=== PATIENT | female | born 1945 | race Caucasian/White ===

== ENCOUNTER 2025-04-01 14:41 | Inpatient (IN) | payer MEDICARE, OTHER ==
[2025-04-01] MEDS ORDERED: Acetaminophen 500 MG TAB PO PRN (18:44)
[2025-04-01] MEDS: oxyCODONE 5 MG TAB PO PRN (20:41)
[2025-04-01] MEDS: Senokot S 8.6-50 MG TAB PO SCH (20:43)
[2025-04-01] MEDS: Melatonin 3 MG TAB PO PRN (20:43)
[2025-04-02 04:50] LABS: #Basophils 0.4 thou/uL (0.0-0.2); #Eosinophils 0.3 thou/uL (0.0-0.7); #Lymphocytes 1.9 thou/uL (1.20-3.40); #Monocytes 1.1 thou/uL (0.11-0.59); #Neutrophils 12.1 thou/uL (1.40-6.50); %Basophils 2.6 % (0.0-1.0); %Eosinophils 1.8 % (0.0-10.0); %Lymphocytes 12.2 % (21.0-51.0); %Monocytes 7.0 % (0.0-10.0); %Neutrophils 76.4 % (42.0-75.0); Hematocrit 37.4 % (36.0-47.0); Hemoglobin 13.5 g/dL (12.0-16.0); Mean Corpuscular Hemoglobin 29.9 pg (27.0-31.0); Mean Corpuscular Volume 83.0 fl (78.0-98.0); Platelet Count 272 10x3/uL (130-400); Red Blood Cell (RBC) Count 4.51 mill/uL (4.20-5.40); White Blood Cell (WBC) Count 15.8 10x3/uL (4.8-10.8)
[2025-04-02 05:02] LABS: Anion Gap 16 mmol/L (10-20); BUN (Urea Nitrogen) 14 mg/dL (9.8-20.1); Calc. Creatinine Clearance 70 mL/min (70-130); Calcium 8.9 mg/dL (7.8-10.44); Carbon Dioxide 26 mmol/L (23-31); Chloride 96 mmol/L (98-107); Glucose 98 mg/dL (83-110); Potassium 3.9 mmol/L (3.5-5.1); Sodium 134 mmol/L (136-145)
[2025-04-02 08:03] VITALS: BMI 33.7
[2025-04-02] MEDS: Lisinopril 10 MG TAB PO SCH (09:14)
[2025-04-02] MEDS: Senokot S 8.6-50 MG TAB PO SCH (09:14)
[2025-04-02] MEDS: Aspirin Chewable 81 MG TAB PO SCH (09:14)
[2025-04-02] MEDS: Pantoprazole 40 MG DR.TAB PO SCH (09:18)
[2025-04-02] MEDS: Sertraline 25 MG TAB PO SCH (09:18)
[2025-04-03] MEDS: Acetaminophen 325 MG TAB PO PRN (20:30)
[2025-04-04] MEDS ORDERED: Senokot S 8.6-50 MG TAB PO PRN (09:50)
[2025-04-04] MEDS ORDERED: HYDROcodone/Acetaminophen 5/325 mg Tablet PO PRN (09:50)
[2025-04-05 04:53] LABS: Hematocrit 38.1 % (36.0-47.0); Hemoglobin 13.9 g/dL (12.0-16.0); MDiff Complete? YES; Mean Corpuscular Hemoglobin 29.8 pg (27.0-31.0); Mean Corpuscular Volume 81.7 fl (78.0-98.0); Platelet Adequacy Comment Appears Adequate; Platelet Count 387 10x3/uL (130-400); Red Blood Cell (RBC) Count 4.66 mill/uL (4.20-5.40); White Blood Cell (WBC) Count 21.9 10x3/uL (4.8-10.8)
[2025-04-05 04:58] LABS: ALT (SGPT) 29 U/L (Less than 34); AST (SGOT) 41 U/L (11-34); Albumin 2.8 g/dL (3.1-4.5); Alkaline Phosphatase 400 U/L (40-110); Anion Gap 24 mmol/L (10-20); BUN (Urea Nitrogen) 45 mg/dL (9.8-20.1); Bilirubin, Total 2.4 mg/dL (0.3-1.2); Calc. Creatinine Clearance 17 mL/min (70-130); Calcium 8.9 mg/dL (7.8-10.44); Carbon Dioxide 17 mmol/L (23-31); Chloride 95 mmol/L (98-107); Globulin 5.0 g/dL (2.4-3.5); Glucose 122 mg/dL (83-110); Potassium 4.7 mmol/L (3.5-5.1); Sodium 131 mmol/L (136-145)
[2025-04-05] MEDS: Lisinopril 10 MG TAB PO SCH (09:20)
[2025-04-05 21:06] LABS: #Basophils 0.2 thou/uL (0.0-0.2); #Eosinophils 0.4 thou/uL (0.0-0.7); #Lymphocytes 2.4 thou/uL (1.20-3.40); #Monocytes 1.6 thou/uL (0.11-0.59); #Neutrophils 14.3 thou/uL (1.40-6.50); %Basophils 1.1 % (0.0-1.0); %Eosinophils 1.9 % (0.0-10.0); %Lymphocytes 12.7 % (21.0-51.0); %Monocytes 8.5 % (0.0-10.0); %Neutrophils 75.8 % (42.0-75.0); Hematocrit 36.6 % (36.0-47.0); Hemoglobin 12.9 g/dL (12.0-16.0); Mean Corpuscular Hemoglobin 29.4 pg (27.0-31.0); Mean Corpuscular Volume 83.3 fl (78.0-98.0); Platelet Count 353 10x3/uL (130-400); Red Blood Cell (RBC) Count 4.40 mill/uL (4.20-5.40); White Blood Cell (WBC) Count 18.8 10x3/uL (4.8-10.8)
[2025-04-05 21:25] LABS: ALT (SGPT) 23 U/L (Less than 34); AST (SGOT) 34 U/L (11-34); Albumin 2.6 g/dL (3.1-4.5); Alkaline Phosphatase 337 U/L (40-110); Anion Gap 22 mmol/L (10-20); BUN (Urea Nitrogen) 51 mg/dL (9.8-20.1); Bilirubin, Total 1.8 mg/dL (0.3-1.2); Calc. Creatinine Clearance 17 mL/min (70-130); Calcium 8.1 mg/dL (7.8-10.44); Carbon Dioxide 15 mmol/L (23-31); Chloride 101 mmol/L (98-107); Globulin 4.4 g/dL (2.4-3.5); Glucose 115 mg/dL (83-110); Potassium 4.6 mmol/L (3.5-5.1); Sodium 133 mmol/L (136-145)
[2025-04-06] MEDS: cefTRIAXone\\ROCEPHIN 1 GM in Sodium Chloride 0.9% 100 ML IVPB SCH (00:28)
[2025-04-06 04:42] VITALS: BP 129/82; TEMP 97.8
[2025-04-06 05:00] LABS: #Basophils 0.3 thou/uL (0.0-0.2); #Eosinophils 0.3 thou/uL (0.0-0.7); #Lymphocytes 1.9 thou/uL (1.20-3.40); #Monocytes 1.4 thou/uL (0.11-0.59); #Neutrophils 13.0 thou/uL (1.40-6.50); %Basophils 1.9 % (0.0-1.0); %Eosinophils 1.6 % (0.0-10.0); %Lymphocytes 11.1 % (21.0-51.0); %Monocytes 8.3 % (0.0-10.0); %Neutrophils 77.0 % (42.0-75.0); Hematocrit 33.3 % (36.0-47.0); Hemoglobin 11.9 g/dL (12.0-16.0); Mean Corpuscular Hemoglobin 29.0 pg (27.0-31.0); Mean Corpuscular Volume 81.3 fl (78.0-98.0); Platelet Count 321 10x3/uL (130-400); Red Blood Cell (RBC) Count 4.10 mill/uL (4.20-5.40); White Blood Cell (WBC) Count 16.9 10x3/uL (4.8-10.8)
[2025-04-06 05:06] LABS: ALT (SGPT) 21 U/L (Less than 34); AST (SGOT) 28 U/L (11-34); Albumin 2.3 g/dL (3.1-4.5); Alkaline Phosphatase 296 U/L (40-110); Anion Gap 17 mmol/L (10-20); BUN (Urea Nitrogen) 48 mg/dL (9.8-20.1); Bilirubin, Total 1.5 mg/dL (0.3-1.2); Calc. Creatinine Clearance 20 mL/min (70-130); Calcium 7.8 mg/dL (7.8-10.44); Carbon Dioxide 16 mmol/L (23-31); Chloride 107 mmol/L (98-107); Globulin 4.0 g/dL (2.4-3.5); Glucose 105 mg/dL (83-110); Potassium 4.7 mmol/L (3.5-5.1); Sodium 135 mmol/L (136-145)
== END 2025-04-06 05:40 | disposition short-term general hospital (02) | DRG 872 ==
LOC: BURMED 17:32
PROVIDERS: ADMIT Family Medicine; ATTEND Nurse Practitioner
PROC: F07Z5ZZ Bed Mobility Treatment (ICD-10-PCS; principal; 2025-04-02)
PROC: F08Z0ZZ Bathing/Showering Techniques Treatment (ICD-10-PCS; 2025-04-02)
PROC: 3E03329 Introduction of Other Anti-infective into Peripheral Vein, Percutaneous Approach (ICD-10-PCS; 2025-04-06)
DX: A41.9 Sepsis, unspecified organism (principal); K80.30 Calculus of bile duct with cholangitis, unspecified, without obstruction; I50.9 Heart failure, unspecified; I11.0 Hypertensive heart disease with heart failure; Z79.899 Other long term (current) drug therapy; Z98.890 Other specified postprocedural states; R53.81 Other malaise
CPT/HCPCS: 36415; 80048; 80053; 85025; 87040; J0696; J7030; Q0162

== ENCOUNTER 2025-04-16 10:52 | Inpatient (IN) | payer MEDICARE, OTHER ==
[2025-04-16 11:07] VITALS: BMI 31.9
[2025-04-16] MEDS ORDERED: oxyCODONE 5 MG TAB PO PRN (12:49)
[2025-04-16] MEDS ORDERED: Acetaminophen 500 MG TAB PO PRN (12:49)
[2025-04-16] MEDS: Senokot S 8.6-50 MG TAB PO SCH (20:15)
[2025-04-16] MEDS: Heparin 5,000 UNITS/ML VIAL SC SCH (20:15)
[2025-04-17] MEDS: FLU (Fluad Triv) 25-26 (65UP)PF 45 MCG/0.5 ML Syringe IM ONE (01:22)
[2025-04-17] MEDS: PNEUMOC 20-VAL CONJ-DIP CRM/PF 0.5 ML SYRINGE IM ONE (01:23)
[2025-04-17 04:50] LABS: #Basophils 0.2 thou/uL (0.0-0.2); #Eosinophils 0.3 thou/uL (0.0-0.7); #Lymphocytes 2.9 thou/uL (1.20-3.40); #Monocytes 0.8 thou/uL (0.11-0.59); #Neutrophils 4.8 thou/uL (1.40-6.50); %Basophils 2.7 % (0.0-1.0); %Eosinophils 3.8 % (0.0-10.0); %Lymphocytes 31.6 % (21.0-51.0); %Monocytes 9.0 % (0.0-10.0); %Neutrophils 52.9 % (42.0-75.0); Hematocrit 38.0 % (36.0-47.0); Hemoglobin 12.6 g/dL (12.0-16.0); Mean Corpuscular Hemoglobin 29.5 pg (27.0-31.0); Mean Corpuscular Volume 88.8 fl (78.0-98.0); Platelet Count 350 10x3/uL (130-400); Red Blood Cell (RBC) Count 4.28 mill/uL (4.20-5.40); White Blood Cell (WBC) Count 9.0 10x3/uL (4.8-10.8)
[2025-04-17 05:14] LABS: ALT (SGPT) 21 U/L (Less than 34); AST (SGOT) 34 U/L (11-34); Albumin 3.0 g/dL (3.1-4.5); Alkaline Phosphatase 204 U/L (40-110); Anion Gap 14 mmol/L (10-20); BUN (Urea Nitrogen) 42 mg/dL (9.8-20.1); Bilirubin, Total 0.8 mg/dL (0.3-1.2); Calc. Creatinine Clearance 51 mL/min (70-130); Calcium 8.7 mg/dL (7.8-10.44); Carbon Dioxide 18 mmol/L (23-31); Chloride 109 mmol/L (98-107); Globulin 4.0 g/dL (2.4-3.5); Glucose 111 mg/dL (83-110); Potassium 4.4 mmol/L (3.5-5.1); Sodium 137 mmol/L (136-145)
[2025-04-17] MEDS: Sertraline 100 MG TAB PO SCH (09:45)
[2025-04-17] MEDS: Aspirin Chewable 81 MG TAB PO SCH (09:45)
[2025-04-17] MEDS: Pantoprazole 40 MG DR.TAB PO SCH (09:45)
[2025-04-17] MEDS: Sodium Bicarbonate Tab 325 MG TAB PO SCH (20:30)
[2025-04-18 20:40] VITALS: BMI 31.9
[2025-04-26 10:34] VITALS: BP 145/84; TEMP 98.5
== END 2025-04-26 11:12 | disposition home or self-care (01) | DRG 945 ==
LOC: BURMED 10:52
PROVIDERS: ADMIT Family Medicine; ATTEND Family Medicine
PROC: F07Z9ZZ Gait Training/Functional Ambulation Treatment (ICD-10-PCS; principal; 2025-04-20)
DX: R53.1 Weakness (principal); E87.20 Acidosis, unspecified; K83.09 Other cholangitis; I10 Essential (primary) hypertension; F41.9 Anxiety disorder, unspecified; E86.0 Dehydration; K80.50 Calculus of bile duct without cholangitis or cholecystitis without obstruction; R79.89 Other specified abnormal findings of blood chemistry
CPT/HCPCS: 36415; 80053; 85025; J1644